=== PATIENT | male | born 1955 | race Caucasian/White ===

== ENCOUNTER 2017-03-19 14:00 | Emergency (ER) | payer OTHER ==
[~2017-03-19] VITALS: Ht 177.8 cm; Wt 89.8 kg
[2017-03-19 14:15] VITALS: BP 149/82
--- NOTE | 2017-03-19 16:47 | ED GENERAL ADULT ---
History of Present Illness General Chief Complaint: General Adult Stated Complaint: BIBA; CHOKING, VOMITING, SWOLLOWED UNKNOWN SOMETHI Source: patient Exam Limitations: no limitations Vital Signs & Intake/Output Vital Signs & Intake/Output Vital Signs Date Time Temp Pulse Resp B/P B/P Pulse O2 O2 Flow FiO2 Mean Ox Delivery Rate 03/19 1415 99.1 98 15 149/82 95 Room Air Room Air Allergies Coded Allergies: No Known Allergies (03/19/17) Triage Note: PT TO ED FOR C/C OF CHOKING S/P ?SWALLOWING SOMETHING HARD WHILE AT [employer]. PT THEN VOMITTED AND THEN SWALLOWED THE ?HARD OBJECT AFTER VOMTING. DENIES ANY COMPLAINTS AT THIS TIME. NO ACUTE DISTRESS NOTED. Triage Nurses Notes Reviewed? yes Onset: Abrupt Duration: hour(s): Timing: single episode today Injury Environment: restaurant Severity: moderate Modifying Factors: Worsens With: eating. HPI: 61-year-old male presents to emergency department complaining of choking on food prior to arrival. Patient states that while he was eating a sandwich at a restaurant he bit down any hard object and then swallowed it with pain. He also vomited up partial amounts of his food, nonbilious and nonbloody. At this time he felt pain in his esophagus and felt short of breath. Currently his pain has resolved and he no longer feels dyspneic. He denies chest pain, syncope, abdominal pain, changes in bowel movements, changes in urination. Last bowel movement was this morning. (NELLY PROCTOR) Past History Travel History Traveled to [place] past 21 day No Medical History Any Pertinent Medical History? see below for history Neurological: NONE EENT: NONE Cardiovascular: hyperlipidemia Respiratory: NONE Gastrointestinal: NONE Hepatic: NONE Renal: NONE Musculoskeletal: NONE Psychiatric: anxiety, depression Endocrine: NONE Blood Disorders: NONE Cancer(s): NONE HEADMASTER/MISTRESS/Reproductive: NONE Surgical History Surgical History: non-contributory Psychosocial History What is your primary language [place]orese Tobacco Use: Current Daily Use Daily Tobacco Use Amount/Type: =< 4 Cigarettes daily ETOH Use: occasional use Illicit Drug Use: denies illicit drug use Family History Hx Contributory? No (NELLY PROCTOR) Review of Systems Review of Systems Constitutional: Reports: no symptoms. Comments Review of systems: See HPI, All other systems negative. Constitutional, no chills no fever, no malaise no weight loss HEENT: No visual changes, +sore throat, no congestion, no ear pain Cardiovascular: No chest pain , no palpitation , no orthopnea Skin: no rashes, no change in skin Respiratory: No dyspnea no cough no sputum no hemoptysis GI: +N/V DURING INCIDENT, NOT CURRENTLY, no diarrhea, no bloating/constipation : No dysuria, no frequency Muscle skeletal: No joint pain, no joint swelling, no back pain, no neck pain, Neurologic: No numbness no confusion, no headache Psych: No stress no depression,. Heme/endocrine: No bruising no bleeding Immunology: No lymphadenopathy (NELLY PROCTOR) Physical Exam Physical Exam General Appearance: well developed/nourished, no apparent distress, alert, awake Comments: Well-developed well-nourished person in no acute distress HEENT: Hearing grossly normal; EOMI, no nystagmus. HEAD is atraumatic. moist mucous membranes. Neck: Supple, , normal range of motion without pain or tenderness Back: Nontender, Full range of motion Cardiovascular: Regular rate and rhythms no murmurs rubs or gallops, normal JVP Respiratory: Chest nontender.There were no bony deformities, no asymmetry. No respiratory distress. Patient speaking in full complete sentences. Breath sounds clear to auscultation bilaterally: NO W/R/R Abdomen: Soft, nontender nondistended, no appreciable organomegaly. Normal bowel sounds. No rebound/guarding, No appreciable enlargement of the abdominal aorta, No ascites. Extremity: No edema, full range of motion of extremities Neuro: Alert oriented x3, motor sensory normal, . There were no obvious focal neurologic abnormalities. Skin: No appreciable rash on exposed skin, skin is warm and dry. Psych: Mood and affect is normal, memory and judgment is normal. Core Measures ACS in differential dx? No CVA/TIA Diagnosis: No Severe Sepsis Present: No Septic Shock Present: No (NELLY PROCTOR) Progress Differential Diagnoses I considered the following diagnoses in my evaluation of the patient: [ aspiration, eosinophic esophagitis, esophageal rupture, food bolus] Plan of Care: Orders Procedure Date/time Status XRY-CHEST XRAY, PA AND LATERAL 03/19 1708 Active 03/19/2017 5:15:31 PM Patient is sitting comfortably on bed, he is in no acute distress, no respiratory distress. He is in agreement with plan of care. D/W PT HIS CXR FINDINGS He is tolerating PO, tolerating his own secretions, speaking in full sentences. Suspicion for aspiration or persistent food bolus is low at this time given his clinical presentation. (NELLY PROCTOR) Diagnostic Imaging: Viewed by Me: Radiology Read. Discussed w/RAD: Radiology Read. CXR Impression: PATIENT: MUKESH CANDELARIO PRESENT AGE: 61 PATIENT ACCOUNT NO: [id number] : 53 LOCATION: [facility] ORDERING PHYSICIAN: NELLY WILBURN SERVICE DATE: 03/19/17 EXAM TYPE: RAD - XRY- CHEST XRAY, PA AND LATERAL EXAMINATION: CHEST 2 VIEWS CLINICAL INFORMATION: Choking while eating. COMPARISON: None. TECHNIQUE: PA and lateral views of the chest were obtained. FINDINGS: The cardiac silhouette is not enlarged. The mediastinal and hilar contours are unremarkable. There are neither pleural effusions nor pneumothoraces. There is nonspecific airspace disease within the left lower lobe. The osseous structures are unremarkable. IMPRESSION: Nonspecific left lower lobe airspace disease. Recommendation is for a followup chest series to be obtained following treatment and/or resolution of symptoms to assure resolution of this appearance. DICTATED BY: KAILYN HARDEN MD DATE/TIME DICTATED:03/19/171755 DIETARY SERVICE AIDE:DAHIANA DATE/TIME TRANSCRIBED:1755 CONFIDENTIAL, DO NOT COPY WITHOUT APPROPRIATE AUTHORIZATION. < Electronically signed in Other Vendor System> SIGNED BY: KAILYN HARDEN MD 03/19/17 1800 Initial ED EKG: none (NELLY PROCTOR) Departure Departure Time of Disposition: 1754 Disposition: HOME OR SELF CARE Condition: Stable Clinical Impression Primary Impression: Choking episode Referrals: PATIENT HAS NO PRIMARY CARE DR (PCP/Family) Additional Instructions: follow up with your pmd as well as gastroenterogist dr flaherty as discussed. return with any concerns Departure Forms: Customer Survey General Discharge Information (NELLY PROCTOR) PA/[employer]EM[employer] Co-Sign Statement Statement: ED Attending supervision documentation- [] I saw and evaluated the patient. I have also reviewed all the pertinent lab results and diagnostic results. I agree with the findings and the plan of care as documented in the PA's/CARPENTER FOREMAN's documentation. [X] I have reviewed the ED Record and agree with the PA's/CARPENTER FOREMAN's documentation. [] Additions or exceptions (if any) to the PAs/CARPENTER FOREMAN's note and plan are summarized below: [] (ANJU ZHOU,KATERYNA) Critical Care Note Critical Care Note Critical Care Time: non-applicable (NELLY PROCTOR) ED Attending Observation Initial Observation Note: I have seen and personally examined MUKESH CANDELARIO SR on 03/19/17 at 1813. I agree with the current emergency department documentation. The disposition (admission or discharge) is uncertain at this time, he needs a period of observation for the following reason(s): The ED Nurse caring for this patient has been personally informed as to what the patient is being observed for. (NELLY PROCTOR)
--- NOTE | 2017-03-19 18:00 | RADIOLOGY REPORT ---
EXAMINATION: CHEST 2 VIEWS CLINICAL INFORMATION: Choking while eating. COMPARISON: None. TECHNIQUE: PA and lateral views of the chest were obtained. FINDINGS: The cardiac silhouette is not enlarged. The mediastinal and hilar contours are unremarkable. There are neither pleural effusions nor pneumothoraces. There is nonspecific airspace disease within the left lower lobe. The osseous structures are unremarkable. IMPRESSION: Nonspecific left lower lobe airspace disease. Recommendation is for a followup chest series to be obtained following treatment and/or resolution of symptoms to assure resolution of this appearance.
== END 2017-03-19 18:18 ==
LOC: ERH 14:00
DX: T18.128A Food in esophagus causing other injury, initial encounter (principal)